=== PATIENT | female | born 1965 | race Caucasian/White ===

== ENCOUNTER 2018-11-14 14:03 | Emergency (ER) | payer MEDICAID ==
[2018-11-14] MEDS ORDERED: ceFAZolin 1 GM in Sodium Chloride 0.9% 50 ML IV ONE (15:15)
[2018-11-14] MEDS ORDERED: Morphine Sulfate 2 mg/mL 1mL Syr IV STA (15:17)
[2018-11-14] MEDS ORDERED: Morphine Sulfate 2 mg/mL 1mL Syr ONE (15:46)
--- NOTE | 2018-11-14 16:49 | ED Physician Chart ---
ED Chief Complaint/HPI - Patient Information Date Seen:: 11/14/18 Time Seen:: 14:17 Chief Complaint:: painful left shoulder rash History of Present Illness:: painful left shoulder rash with paresthesias before hand. she has been scratching the area and applying an unknown cream from a [place] on it Allergies:: Allergies Allergy/AdvReac Type Severity Reaction Status Date / Time No Known Allergies Allergy Verified 11/14/18 14:13 Vitals:: Vital Signs - 8 hr 11/14/18 14:17 Temp 97.9 F HR 77 RR 17 BP 120/80 O2 Sat % 97 Historian:: Patient, Family Member Review:: Nurse's Note Reviewed ED Review of Systems - Review of Systems General/Constitutional: No fever, No chills, No weight loss, No weakness, No diaphoresis, No edema, No loss of appetite Skin: Rash, No bruising, Other (painful left shoulder skin rash) Head: No headache, No light-headedness Eyes: No loss of vision, No pain, No diplopia ENT: No earache, No nasal drainage, No sore throat, No tinnitus Neck: No neck pain, No swelling, No thyromegaly, No stiffness, No mass noted Cardio Vascular: No chest pain, No palpitations, No PND, No orthopnea, No edema Pulmonary: No SOB, No cough, No sputum, No wheezing GI: No nausea, No vomiting, No diarrhea, No pain, No melena, No hematochezia, No constipation, No hematemesis G/U: No dysuria, No frequency, No hematuria Musculoskeletal: No bone or joint pain, No back pain, No muscle pain Endocrine: No polyuria, No polydipsia Psychiatric: No prior psych history, No depression, No anxiety, No suicidal ideation Hematopoietic: No bruising, No lymphadenopathy Allergic/Immuno: No urticaria, No angioedema Neurological: No syncope, No focal symptoms, No weakness, No paresthesia, No headache, No seizure, No dizziness, No confusion, No vertigo ED Past Medical History - Past Medical History Obtainable: Yes Past Medical History: No significant medical hx Family Medical History - Family Member Mother History Unknown: Yes ED Physical Exam - Physical Examination General/Constitutional: Awake, Well-developed, well-nourished, Alert, No distress, GCS 15, Non-toxic appearing, Ambulatory Head: Atraumatic Eyes: Lids, conjuctiva normal, PERRL, EOMI Other Skin comments:: painful left shoulder rash vesicles present. posterior neck scabs (from prior scratching) pustule present in one area (from prior scratching). ENMT: External ears, nose nl Neck: Nontender, No nuchal rigidity, No stridor Respiratory: Nl effort/Exclusion, Clear to Auscultation, No Wheeze/Rhonchi/Rales Cardio Vascular: RRR, No murmur, gallop, rubs, NL S1 S2 Neuro/Psych: Alert/oriented, Normal sensory exam, Normal motor strength, Judgement/insight normal, Mood normal, Normal gait Misc: Normal back, No paraspinal tenderness ED Septic Shock - . Is Septic Shock (SBP<90, OR Lactate>4 mmol\L) present?: No - <6hrs of presentation: Vital Signs: Vital Signs - 8 hr 12/14/18 14:17 Temp 97.9 F HR 77 RR 17 BP 120/80 O2 Sat % 97 ED Reassessment (Disposition) - Reassessment Reassessment Condition:: Unchanged - Diagnosis Diagnosis:: Left shoulder shingles Secondary staph infection - Aftercare/Follow up Instructions Aftercare/Follow-Up Instructions:: Refer to Discharge Instructions Medication Prescribed:: Medrol 4 mg pack: take as directed. Acyclovir 800 mg po 5 times a day. Bactrim DS 1 po bid # 20 Bactroban cream: apply after hydrogen peroxide - Patient Disposition Discharge/Transfer:: Home Condition at Disposition:: Stable, Unchanged
== END 2018-11-14 17:05 | disposition home or self-care (01) ==
LOC: ER 14:03
DX: B02.9 Zoster without complications (principal); B95.8 Unspecified staphylococcus as the cause of diseases classified elsewhere
CPT/HCPCS: 99283; 96365; 96375; J2270; J0690; J2930; Z7502